=== PATIENT | female | born 1955 ===

== ENCOUNTER 2017-03-23 06:12 | Day surgery (SDC) | payer OTHER, MEDICARE ==
[~2017-03-23 06:12] MED LIST: NACL 0.9% 1000 ML 1,000 ML IV SCH; VANCOMYCIN/NS 1 GM/250 ML 1 GM/250 ML BAG IV NR
[2017-03-23] MEDS ORDERED: NACL BACTERIOSTATIC INFILTRATI ONE (06:21)
[2017-03-23] MEDS ORDERED: DILAUDID ONE (07:16)
[2017-03-23] MEDS ORDERED: DIPRIVAN 10 MG/ML IV ONE (07:16)
[2017-03-23] MEDS ORDERED: XYLOCAINE MPF 2% ONE (07:17)
[2017-03-23] MEDS ORDERED: PEPCID IV NR (07:26)
--- NOTE | 2017-03-23 07:32 | Anesthesia Consultation ---
Anesthesia Consult and Med Hx Date of service: 03/23/17 - Airway Anesthetic Teeth Evaluation: Poor (broken to the root teeth in the back) ROM Head & Neck: Adequate Mental/Hyoid Distance: Adequate Mallampati Class: Class III Intubation Access Assessment: Possibly Difficult - Pre-Operative Health Status ASA Pre-Surgery Classification: ASA3 Proposed Anesthetic Plan: General - Pulmonary Hx Smoking: No COPD: Yes (from second hand smoking. No issue since 2006) - Cardiovascular System Hx Hypertension: Yes (20YRS) - Central Nervous System Hx Neuromuscular Disorder: Yes (rheumatoid arthritis) - Endocrine Hx Renal Disease: Yes (10YRS) Hx End Stage Renal Disease: Yes Hx Insulin Dependent Diabetes: Yes - Hematic Hx Anemia: Yes - Other Systems Hx Cancer: Yes (h/o cervical CA) Hx Obesity: Yes (BMI 46.7)
--- NOTE | 2017-03-23 07:35 | Anesthesia Day of Surgery ---
Anesthesia Day of Surgery - Day of Surgery Patient Examined: Yes Patient H&P Reviewed: Yes Patient is NPO: Yes
[2017-03-23] MEDS ORDERED: MARCAINE 0.5% INFILTRATI ONE ×2 (07:37→08:50)
[2017-03-23] MEDS ORDERED: NACL 0.9% 500 ML 500 ML ONE (07:38)
[2017-03-23] MEDS ORDERED: HEPARIN 10,000 UNITS/10 ML ONE (07:38)
[2017-03-23] MEDS ORDERED: PROTAMINE SULFATE ONE (07:39)
[2017-03-23] MEDS ORDERED: PAPAVERINE ONE (07:39)
[2017-03-23] MEDS ORDERED: NACL ONE (07:39)
[2017-03-23] MEDS ORDERED: RIFADIN ONE (07:39)
[2017-03-23 07:45] LABS: Basophils % (Auto) 0.5 % (0.0-1.8); Eosinophils % (Auto) 4.6 % (0.0-4.3); Hematocrit 25.4 % (30.3-42.9); Hemoglobin 8.2 gm/dl (10.1-14.3); Mean Corpuscular HGB Conc 32 % (30-34); Mean Corpuscular Hemoglobin 29 pg (28-32); Mean Corpuscular Volume 89 fl (79-97); Platelet Count 208 K/mm3 (140-440); Red Blood Count 2.85 M/mm3 (3.65-5.03); Red Cell Distribution Width 15.8 % (13.2-15.2); White Blood Count 10.1 K/mm3 (4.5-11.0)
[2017-03-23 07:54] LABS: INR 0.97 (0.87-1.13)
[2017-03-23 07:55] LABS: BUN/Creatinine Ratio 10.3; Calcium 9.3 mg/dL (8.4-10.2); Chloride 98.4 mmol/L (98-107); Potassium 4.6 mmol/L (3.6-5.0)
[2017-03-23] MEDS ORDERED: VERSED IV NR (08:00)
[2017-03-23] MEDS ORDERED: NACL 0.9% IR ONE (08:50)
[2017-03-23] MEDS ORDERED: HEPARIN IV ONE (08:51)
[2017-03-23] MEDS ORDERED: NACL 0.9% 500 ML IV ONE (08:52)
[2017-03-23] MEDS ORDERED: ZOFRAN ONE (08:54)
--- NOTE | 2017-03-23 09:15 | Short Stay Summary ---
Short Stay Documentation Date of service: 03/23/17 Narrative H&P: See H&P - History H&P: obtained from office - Allergies and Medications Current Medications: Allergies Penicillins Allergy (Verified 03/19/17 10:10) Unknown Home Medications Medication Instructions Recorded Confirmed Last Taken Type Allopurinol [Allopurinol] 100 mg PO DAILY 03/23/17 03/23/17 03/22/17 History Brinzolamide/Brimonidine Tart 1 drop OU TID 03/23/17 03/23/17 03/22/17 History [Simbrinza 1%-0.2% Eye Drops] Furosemide [Furosemide] 40 mg PO DAILY 03/23/17 03/23/17 03/22/17 History Hydralazine HCl [Apresoline TAB] 50 mg PO BID 03/23/17 03/23/17 03/23/17 05:30 History Insulin NPH/Regular [NovoLIN 70/30] 40 units SUB-Q BID 03/23/17 03/23/17 History Travoprost [Travatan Z 0.004%] 1 drop OU HS 03/23/17 03/23/17 03/22/17 History Active Medications Famotidine (Pepcid) 20 mg IV ONCE NR Stop: 03/23/17 16:00 Last Admin: 03/23/17 07:34 Dose: 20 mg Sodium Chloride (Nacl 0.9% 1000 Ml) 1,000 mls @ 42 mls/hr IV DIRECT ROSE Last Admin: 03/23/17 07:05 Dose: 42 mls/hr Vancomycin HCl (Vancomycin/Ns 1 Gm/250 Ml) 1 gm in 250 mls @ 166.667 mls/hr IV PREOP NR PRN Reason: Protocol Stop: 03/23/17 23:59 Last Admin: 03/23/17 07:37 Dose: 166.667 mls/hr Midazolam HCl (Versed) 2 mg IV PREOP NR Stop: 03/23/17 23:59 Last Admin: 03/23/17 07:32 Dose: 2 mg - Brief post op/procedure progress note Date of procedure: 03/23/17 Pre-op diagnosis: Chronic Renal Insufficiency Post-op diagnosis: same Procedure: Creation of Left Yousuf Fistula Anesthesia: GETA Surgeon: JEFFERY ARORA Estimated blood loss: minimal Pathology: none Condition: stable - Disposition Condition at discharge: Good Disposition: DISCHARGED TO HOME OR SELFCARE Short Stay Discharge Plan Activity: other (no heavy lifting with left arm) Wound: open to air, keep clean and dry, other (okay to wash the wound with soap and water but do not soak in water) Follow up with: JEFFERY ARORA MD [Staff Physician] - 14 Days Prescriptions: HYDROcodone/APAP 7.5-325 [[place] 7.5/325] 1 each PO Q6HR PRN #50 tablet PRN Reason: Pain
--- NOTE | 2017-03-23 09:17 | Operative Report ---
Operative Report Operative Report: Date of procedure: 03/23/2017 Pre-operative diagnosis: Chronic Renal Insufficiency Post-operative diagnosis: Same Procedure(s): Creation of Left Yousuf Fistula Surgeon: Carlos Alberto Meeks MD Industrial Court Magistrate: None Anesthesia: General Endotracheal Anesthesia EBL: Minimal Counts: Correct Complications: None Condition: Stable Findings: Successful creation of left arm AV fistula Specimen: None Indication: The patient is a 61-year-old female with a history of chronic renal sufficiency was not yet on hemodialysis but will require it in the next several months. She is in need of long-term access to avoid placement of dialysis catheters. She was given the risks, benefits, and alternative procedures of an AV fistula creation and consented to procedure. Description of Procedure: The patient was brought to the operating room and laid in supine position after general endotracheal anesthesia was achieved his left arm was prepped and draped in normal sterile fashion. Longitudinal incision was then created on the distal wrist centered over the cephalic vein and a second incision was created in longitudinal fashion over the radial artery. The radial artery was dissected out circumferentially and controlled with vessel loops. The cephalic vein was then dissected out circumferentially, ligating side branches and dividing them, and then a tunnel was created to transpose it over to the radial artery. A 3 Raisa was then advanced through the cephalic vein proximally to ensure patency. The vein was then flushed with heparinized saline and control of the bulldog clamp. The radial artery vessel loops were put on tension occluding flow, and then an 11 blade and Zamorano scissors used to create an arteriotomy. An end-to-side anastomosis created between the cephalic vein and the radial artery using a single 6-0 Prolene in running fashion. Prior to completing the anastomosis I flushed the artery both retrograde and antegrade and advanced a 3 Raisa into the proximal portion of the artery to break the spasm. I then completed the anastomosis and removed all clamps allowing flow into the fistula which had an excellent thrill. The necessity wound using half percent Marcaine plain. Then closed the wounds in 2 layers using a 3-0 Vicryl running fashion the deep dermal layer, 4-0 Monocryl in a running fashion the subcuticular layer, and Surgicel as a dressing. The patient tolerated the procedure well, all sponge needle asthma counts correct, the patient was taken to recovery in stable condition.
[2017-03-23] MEDS ORDERED: APRESOLINE IV PRN (10:28)
[2017-03-23 13:54] VITALS: BP 162/87
--- NOTE | 2017-03-24 00:08 | Admit Criteria Form ---
Admission Criteria Documentation: AMBULATORY SURGERY EXCEPTION CRITERIA Ambulatory Surgery Exception Criteria ( Place 'X' for any and all applicable criteria): Surgery or procedure performed on ambulatory basis may require inpatient stay for[A] ANY ONE of the following(1)(2)(3)(4)(5)(6)(7)(8)(9): [X] I. A preoperative situation, condition, or finding that warrants inpatient stay as indicated by ANY ONE of the following: [] a) Inpatient care needed because of severity of a disease or condition rather than the surgery (eg, severe cardiac or respiratory disease, severe infection) (15) (16 ) (17) (18) [] b) Emergent procedure (eg, angioplasty for acute ischemia)(19) [] c) Complex surgical approach or situation as indicated by ANY ONE of the following(3): [] i) Open approach needed instead of usual endoscopic, transcatheter, or other less invasive procedure [] ii) Difficult approach because of previous operation [] iii) Airway monitoring required after open neck procedures(20)(21) [] iv) Large mass requiring unusually extensive dissection [] v) Additional complicating feature requiring inpatient care (eg, drain management)(22(23): [X[] i) ASA risk class III or higher (severe systemic disease impairing function) [D] [X] ii) Advanced age (eg, older than 85 years)(14)(24) [] iii) Symptomatic heart failure(25) [] iv) Symptomatic asthma or COPD(8)(21) [] v) Morbid obesity with hemodynamic or respiratory problems(20)( 21)(26)(27) [] vi) Obstructive sleep apnea(20)(21) [] vii) Former premature infants who are younger than 60 weeks [] viii) High risk for severe postoperative abnormalities (eg, severe postoperative hypocalcemia after parathyroidectomy for severe hyperparathyroidism)(27)( 28) [] ix) Unstable angina(25) [] e) Drug-related risk requiring inpatient stay as indicated by ANY ONE of the following(5)(10)(14)(32)(33) [] i) Procedure requires discontinuing drugs or other therapy (eg , antiarrhythmic medication, antiseizure medication), which necessitates inpatient observation or treatment.(18)(31) [] ii) Major surgery and high risk drug use as indicated by ANY ONE of the following: [] 1) Active abuse of cocaine or similar drug [] 2) Monoamine oxidase inhibitor use [] 3) Other drug identified as posing risk [] f) Inadequate outpatient care situation as indicated by ANY ONE of the following(5)(10)(14)(32)(33) [] i) Patient lives remote from medical facility and procedure has urgent complication potential, and temporary nearby residence cannot be arranged [] ii) Patient will have postprocedure incapacitation and inadequate assistance at home, or alternative level of care cannot be arranged. [] iii) Patient will have long general anesthesia or procedure side effect resolution time, and competent person to stay with patient on first postoperative night at home or alternative level of care cannot be arranged. []iv) Other inadequate outpatient situation that cannot be handled by other means [] II. A perioperative event, condition, or finding that warrants inpatient stay as indicated by ANY ONE of the following (1)(2)(3): [] a) Inadequate physiologic recovery: cardiovascular, respiratory, or hemodynamic status not normal or near preoperative baseline(18) [] b) Hemodynamic instability [] c) Patient not alert with near normal or baseline mental status [] d) Temperature not normal or as expected and not appropriate for outpatient treatment of condition [] e) Ambulatory or appropriate activity level status not yet achieved post procedure [E](34)(35)(36) [] f) Operative site not appropriate (eg, unexpected or excessive drainage or bleeding) [] g) Postoperative effects not resolved or adequately managed (eg, significant pain or vomiting not appropriate for outpatient or next level of care)(10)(12) [] h) Complicating features requiring inpatient care as indicated by ANY ONE of the following(37): [] i) Severe complications of procedure (eg, bowel injury, airway compromise, vascular injury,severe hemorrhage) [] ii) Extensive (eg, dissection far beyond usual scope of procedure ) or prolonged (eg, 120 minutes beyond usual) surgery needed requiring inpatient postoperative care [] iii) Conversion to an open or complex procedure that requires inpatient care (eg, open vs laparoscopic cholecystectomy, abdominal vs vaginal hysterectomy)(38) [] iv) Comorbid condition or test result identified during or post procedure that requires inpatient care (7) [] v) Malignant hyperthermia(30) [] vi) Other complicating feature requiring inpatient care(22)(23) Inpatient stay may be needed until ALL of the following are present (1)(2)(3)(4) (5)(6)(10)(14)(33)(40): []a) Physiologic recovery: cardiovascular, respiratory, and hemodynamic status normal or near preoperative baseline []b) Hemodynamic stability []c) Patient alert, with near normal or baseline mental status []d) Temperature appropriate: patient afebrile or temperature appropriate for outpt treatment of condition []e) Activity level appropriate: ambulatory or appropriate activity level post procedure []f) Operative site appropriate as indicated by ALL of the following: []i) Site dry or with expected drainage []ii) Any blood noted is as expected for procedure. []g) Postoperative effects resolved or managed as indicated by ALL of the following: []i) Pain management appropriate for outpatient (or next level of) care(10) []ii) Minimal nausea and vomiting: if present, successfully treated with oral medication(12) []iii) Headache, dizziness, or drowsiness (if present) are mild. []h) Voiding status acceptable as indicated by ANY ONE of the following: []i) Voiding spontaneously []ii) No voiding but instructions given for follow-up in 6 to 8 hours []iii) Urinary catheter in place, and instructions given for follow-up []i) Complicating features requiring inpatient care manageable at a lower level of care(37) []j) Comorbid conditions manageable at a lower level of care(37) The original [employer] [facility] content created by [facility] [employer] has been revised. The portions of the content which have been revised are identified through the use of italic text or in bold, and [facility] has neither reviewed nor approved the modified material. All other unmodified content is copyright [employer]. Please see references footnoted in the original [employer] edition 2016 Admission Criteria Met: Yes
== END 2017-03-23 11:30 | disposition home or self-care (01) ==
LOC: OR 06:12
PROVIDERS: ATTEND Surgery Vascular Surgery
DX: E11.22 Type 2 diabetes mellitus with diabetic chronic kidney disease (principal); I12.0 Hypertensive chronic kidney disease with stage 5 chronic kidney disease or end stage renal disease; N18.6 End stage renal disease; J44.9 Chronic obstructive pulmonary disease, unspecified; M06.9 Rheumatoid arthritis, unspecified; D64.9 Anemia, unspecified; E66.9 Obesity, unspecified; Z68.42 Body mass index [BMI] 45.0-49.9, adult; Z85.9 Personal history of malignant neoplasm, unspecified; Z90.49 Acquired absence of other specified parts of digestive tract; Z79.899 Other long term (current) drug therapy; Z85.41 Personal history of malignant neoplasm of cervix uteri
CPT/HCPCS: 36415; 36818; 80048; 82962; 85025; 85610; J1170; J1644; J2250; J2405; J2704; J3370; J7030; J7040; C1757; J2440; J2720; J3490